=== PATIENT | male | born 1980 | race Caucasian/White ===

== ENCOUNTER 2024-03-22 09:54 | Emergency (ER) | payer OTHER ==
[~2024-03-22] VITALS: Ht 177.8 cm; Wt 99.7 kg
[2024-03-22 11:23] VITALS: BP 134/92; PULSE 97; RESP 16; TEMP 99.5; O2SAT 99
[2024-03-22 12:22] LABS: Eosinophils # (auto) 0.1 10 ^3/uL (0-0.8); Hemoglobin 15.9 g/dL (13.5-17.5); Lymphocytes # (auto) 1.1 10 ^3/uL (0.4-5.4); Monocytes # (auto) 0.4 10 ^3/uL (0-1.3); Neutrophils # (auto) 5.9 10 ^3/uL (1.6-8.6); White Blood Cell 7.5 10^3/uL (4.4-10.8)
[2024-03-22 12:23] LABS: Basophils # (auto) 0.1 10 ^3/uL (0-0.2); Basophils % (auto) 0.8 % (0.0-2.0); Eosinophils % (auto) 1.6 % (0.0-7.0); Hematocrit 46.6 % (41.0-53.0); Lymphocytes % (auto) 14.1 % (10.0-50.0); Mean Corpuscular Hgb Conc. 34.1 g/dL (32.0-36.0); Mean Corpuscular Volume 93.8 fL (80.0-100.0); Monocytes % (auto) 5.6 % (0.0-12.0); Neutrophils % (auto) 77.9 % (37.0-80.0); Nucleated Red Blood Cells % 0.1 %; Red Blood Cells 4.97 10^6/uL (4.5-5.90)
[2024-03-22 12:38] LABS: Chloride 102 mmol/L (98-107); Potassium 4.6 mmol/L (3.5-5.1); Sodium 135 mmol/L (136-145)
[2024-03-22 12:39] LABS: Anion Gap 7 (5-15); Carbon Dioxide 26 mmol/L (20-30)
[2024-03-22 12:40] LABS: Calcium 10.5 mg/dL (8.5-10.1)
[2024-03-22 12:45] LABS: Glucose 84 mg/dL (74-106)
[2024-03-22 12:48] LABS: BUN/Creatinine Ratio 5.9 (10.0-20.0); Blood Urea Nitrogen < 5 mg/dL (9-23)
[2024-03-22] MEDS ORDERED: PRED20TA2 PO (13:10)
[2024-03-22] MEDS ORDERED: TRIA0.1O TOP (13:10)
[2024-03-22] MEDS ORDERED: HYDR-3682 PO (13:10)
== END 2024-03-22 13:10 | disposition home or self-care (01) ==
LOC: ER 09:54
DX: R21 Rash and other nonspecific skin eruption (principal); Z79.899 Other long term (current) drug therapy
CPT/HCPCS: 36415; 80048; 85025